=== PATIENT | male | born 1960 | race Caucasian/White ===

== ENCOUNTER 2020-05-25 14:07 | Emergency (ER) | payer OTHER, SELFPAY ==
--- NOTE | ~2020-05-25 | CT_ITS ---
EXAMINATION: CT abdomen pelvis w con EXAM DATE: 05/25/2020 15:53 INDICATION: Left upper quadrant pain. TECHNIQUE: Spiral CT of the abdomen and pelvis was performed following intravenous injection of 100 m L Omnipaque 350. Axial, coronal and sagittal images were reviewed. The dose-length product (DLP) fo r this examination was 836.58 mGy-cm. The exposure was tailored according to patient size (auto mA e xposure control), and iterative reconstruction (ASIR) was used as additional dose reduction technique . There is no prior study for comparison. FINDINGS: There is hepatic steatosis without suspicious focal lesion identified. Spleen, adrenal glan ds, pancreas are unremarkable. The gallbladder is distended but otherwise unremarkable. There is no biliary duct dilation. Portal and splenic veins are patent. Kidneys enhance symmetrically. There is no hydronephrosis. The prostate is unremarkable. The bladder is unremarkable. There is no retr operitoneal or pelvic lymphadenopathy. There is mild scattered arteriosclerotic disease. Small bila teral inguinal fat-containing hernias. Small umbilical fat-containing hernia. Small supraumbilical fa t-containing hernia. There are no findings to suggest appendicitis. The stomach and small bowel are unremarkable. There is expected amount of colonic stool. No free intraperitoneal gas. The heart is normal in size. T here are no pericardial or pleural effusions. Mild basilar emphysema. No consolidation. There are n o osteoblastic or osteolytic lesions identified. IMPRESSION: 1. No acute intra-abdominal findings. 2. Hepatic steatosis. 3. Small fat-containing hernias. Reviewed, dictated and finalized at location B. [facility]
[2020-05-25 14:25] VITALS: BP 212/105; PULSE 95; RESP 17; TEMP 36.6; O2SAT 98
[2020-05-25] MEDS: MORPHINE SULFATE (*CRX) 4 MG/ML INJ IV PUSH (15:01)
[2020-05-25] MEDS: Please add drug allergy info to patient profile. 1 EACH XX (15:01)
[2020-05-25 15:13] LABS: Basophils Absolute Auto 0.1 K/mm3 (0.0-0.1); Basophils Percent Auto 0.7 % (0.2-1.2); Eosinophils Absolute Auto 0.6 K/mm3 (0-0.3); Hematocrit 46.9 % (42.0-52.0); Hemoglobin 15.9 g/dL (14.0-18.0); Immature Granulocyte Absolute 0.07 K/mm3 (0.00-0.031); Immature Granulocyte Percent A 0.5 % (0-0.5); Lymphocytes Absolute Auto 2.05 K/mm3 (0.9-3.2); Lymphocytes Percent Auto 14.3 % (18.3-44.2); Mean Corpuscular HGB Conc 33.9 g/dl (32-36); Mean Corpuscular Hemoglobin 33.1 pg (26-34); Mean Corpuscular Volume 97.7 fl (80-100); Mean Platelet Volume 10.4 fl (7.4-10.4); Monocytes Absolute Auto 0.9 K/mm3 (0.1-0.6); Monocytes Percent Auto 6.3 % (2.6-8.5); Neutrophils Absolute Auto 10.7 K/mm3 (1.3-6.7); Neutrophils Percent Auto 74.2 % (45.5-73.1); Platelet Count Result 306 k/mm3 (150-375); Red Cell Distribution Width 12.8 % (11.5-14.5); White Blood Count 14.4 K/mm3 (4.5-10.0)
[2020-05-25 15:17] LABS: Add Urine Microscopic? YES; Appearance Urine Clear (Clear); Bilirubin Urine Negative (Negative); Blood Urine Negative (Negative); Color Urine Yellow (Yellow); Glucose Urine UA Negative (Negative); Ketones Urine Negative (Negative); Leukocyte Esterase Ur Negative LEU/UL (Negative); Mucus Urine Rare /lpf; Nitrate Urine Negative (Negative); Protein Urine 2+ mg/dL (Negative); RBC Urine 0-2 /hpf (0-2); Specific Grav Ur 1.023 (1.001-1.035); Squamous Epithelial Cell Urine Rare /hpf (Few); Urobilinogen Urine Negative mg/dL (<2.0); WBC Urine 0-3 /hpf
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
[2020-05-25 15:23] LABS: Alanine Aminotransferase 63 U/L (4-50); Albumin Level 4.8 g/dL (3.5-5.1); Alkaline Phosphatase 85 U/L (38-126); Anion Gap 11 mmol/L (8-16); Aspartate Amino Transferase 48 U/L (17-59); Bilirubin,Total 0.5 mg/dL (0.2-1.3); Blood Urea Nitrogen 37 mg/dL (9-20); Calcium 9.6 mg/dL (8.4-10.2); Carbon Dioxide 27 mmol/L (22-30); Chloride 100 mmol/L (98-107); Estimated CRCL calculation 45 ml/min; Estimated Glomerular Filt Rate 39; Glucose 119 mg/dL (75-110); Lipase 355 U/L (23-300); Potassium 4.7 mmol/L (3.4-5.0); Sodium 138 mmol/L (137-145)
[2020-05-25 16:01] VITALS: BP 176/94; PULSE 100; RESP 17; O2SAT 96
== END 2020-05-25 17:12 | disposition home or self-care (01) ==
PROVIDERS: Emergency Provider Emergency Medicine
DX: S39.011A Strain of muscle, fascia and tendon of abdomen, initial encounter (principal); J44.9 Chronic obstructive pulmonary disease, unspecified; F17.200 Nicotine dependence, unspecified, uncomplicated; X50.9XXA Other and unspecified overexertion or strenuous movements or postures, initial encounter; K76.0 Fatty (change of) liver, not elsewhere classified; K40.20 Bilateral inguinal hernia, without obstruction or gangrene, not specified as recurrent; K42.9 Umbilical hernia without obstruction or gangrene
CPT/HCPCS: 36415; 74177; 80053; 81001; 83690; 85025; 96374; 99284; J2270; Q9967

== ENCOUNTER 2020-11-22 09:48 | Observation (INO) | payer OTHER, SELFPAY ==
[2020-11-22] VITALS (15 sets, daily range): BP systolic 152–183; BP diastolic 87–115; PULSE 80–130; RESP 20–42; TEMP 36.7–36.9; O2SAT 92–97; BMI 31.4
--- NOTE | ~2020-11-22 | XR_ITS ---
XR chest 2V DATE: 11/22/2020 10:17 INDICATION: Shortness of breath, wheezing. COPD. TECHNIQUE: PA and lateral views COMPARISON: None FINDINGS: Normal heart size. Azygos lobe, normal variant. Bilateral hyperinflation suggesting COPD. There is a mildly displaced lateral left ninth rib fracture is some callus formation indicating heali ng. There is some infiltrate or atelectasis at the left lung base. The lungs otherwise appear clear. Levoscoliosis and degenerative spurring of the thoracic spine. IMPRESSION: Lateral left ninth subacute rib fracture Mild infiltrate or atelectasis at the left lung base No pneumothorax Reviewed, dictated and finalized at location A.
--- NOTE | ~2020-11-22 | CT_ITS ---
EXAMINATION: CT abdomen pelvis w con DATE: 11/22/2020 12:49 INDICATION: Left groin abscess TECHNIQUE: Computed tomography (CT) of the abdomen and pelvis was performed with 100 cc Omnipaque 350 intravenous contrast. Automated exposure control and iterative reconstruction technique were employe d. Exam dose: 1074.32 mGy-cm total exam DLP. COMPARISON: 05/25/2020 CT abdomen pelvis 11/22/2020 PA and lateral chest FINDINGS: There are are multiple adjacent rounded areas of atelectasis or consolidation in the job setter honing olateral left lower lobe. Continued follow-up is recommended to assure clearing, in order to exclude any pulmonary mass lesion. There is mild dependent atelectasis at the lower lobes. There is a comminuted fracture at the lateral aspect of the left ninth rib. Normal heart size. No pericardial or pleural effusion. Diffuse hepatic steatosis. No hepatic space-occupying mass lesion. The gallbladder is present. Cannot exclude small dependent stones in the gallbladder. Ultrasound would be more reliable for detection o r exclusion of gallstones. No gallbladder wall thickening or pericholecystic fluid or fat stranding. No bile duct dilatation. No pancreatic mass lesion, calcification or ductal dilatation. Normal splenic size. No adrenal mass lesion. 1 cm right renal cyst. There are a couple of approximately 5 mm or smaller left renal probable cysts. No urinary tract calculus or hydroureteronephrosis. No abdominal aortic aneurysm. No intraperitoneal or retroperitoneal or pelvic mass lesion or adenopat hy or ascites. Prostate enlargement and calcification. The urinary bladder is unremarkable. Bilateral fat-containing inguinal hernias. There is increased density and stranding in the subcutaneous adipose tissues around the left spermati c cord and included upper left scrotal area. There are bilateral shotty nonenlarged inguinal lymph nodes, more numerous on the left. There are are likewise shotty nonenlarged iliac chain nodes bilaterally. Normal appendix. No bowel obstruction, bowel wall thickening, pneumatosis or intraperitoneal free air . Umbilical hernia containing one segment of nonobstructed small bowel. Adjacent small supraumbilical f at-containing hernia. Diffuse idiopathic skeletal hyperostosis of the thoracic spine. Multilevel degenerative disc disease of the lumbar spine, particularly at L4-5 and most prominently a t L5-S1. IMPRESSION: Inflammatory stranding in the subcutaneous soft tissues around the left spermatic cord a nd included upper left scrotum. The scrotum is largely excluded from this examination. Likely reactive bilateral inguinal and iliac lymph node prominence Focal areas of rounded atelectasis or consolidation in the posterolateral left lower lobe near a comm inuted fracture of the lateral left ninth rib Hepatic steatosis Small probable renal cysts Prostate enlargement Bilateral fat-containing inguinal hernias Umbilical hernia containing one segment of nonobstructed small bowel; adjacent small supraumbilical f at-containing hernia Reviewed, dictated and finalized at Location [facility]. Reviewed, dictated and finalized at location A. IMPRESSION: Inflammatory stranding in the subcutaneous soft tissues around the left spermatic cord and included upper left scrotum. The scrotum is largely ex cluded from this examination. Likely reactive bilateral inguinal and iliac lymph node prominence Focal areas of rounded atelectasis or consolidation in the posterolateral left lower lobe near a comminuted fracture of the lateral left ninth rib Hepatic steatosis Small probable renal cysts Prostate enlargement Bilateral fat-containing inguinal hernias Umbilical hernia containing one se
--- NOTE | 2020-11-22 09:57 | ECG_ITS ---
Measurements Intervals Anderson Rate: 123 P: 84 IA: 152 QRS: -41 QRSD: 82 T: 65 QT: 288 QTc: 413 Interpretive Statements SINUS TACHYCARDIA LEFT AXIS DEVIATION BORDERLINE R WAVE PROGRESSION, ANTERIOR LEADS BASELINE ARTIFACT- I, II, AVR ABNORMAL ECG Electronically Signed On 11-22-2020 13:24:48 CDT by Hawk Perez D.O.
[2020-11-22 10:25] LABS: Basophils Absolute Auto 0.1 K/mm3 (0.0-0.1); Basophils Percent Auto 0.9 % (0.2-1.2); Eosinophils Absolute Auto 1.4 K/mm3 (0-0.3); Eosinophils Percent Auto 8.9 % (0-4.4); Hematocrit 48.1 % (42.0-52.0); Hemoglobin 16.1 g/dL (14.0-18.0); Immature Granulocyte Absolute 0.07 K/mm3 (0.00-0.031); Immature Granulocyte Percent A 0.5 % (0-0.5); Lymphocytes Absolute Auto 2.52 K/mm3 (0.9-3.2); Lymphocytes Percent Auto 16.2 % (18.3-44.2); Mean Corpuscular HGB Conc 33.5 g/dl (32-36); Mean Corpuscular Hemoglobin 32.3 pg (26-34); Mean Corpuscular Volume 96.4 fl (80-100); Mean Platelet Volume 10.4 fl (7.4-10.4); Monocytes Absolute Auto 0.9 K/mm3 (0.1-0.6); Monocytes Percent Auto 5.7 % (2.6-8.5); Neutrophils Absolute Auto 10.6 K/mm3 (1.3-6.7); Neutrophils Percent Auto 67.8 % (45.5-73.1); Platelet Count Result 302 k/mm3 (150-375); Red Blood Count 4.99 M/mm3 (4.6-6.20); Red Cell Distribution Width 13.2 % (11.5-14.5); White Blood Count 15.6 K/mm3 (4.5-10.0)
[2020-11-22 11:07] LABS: Anion Gap 12 mmol/L (8-16); Blood Urea Nitrogen 22 mg/dL (9-20); Calcium 9.5 mg/dL (8.4-10.2); Carbon Dioxide 24 mmol/L (22-30); Chloride 102 mmol/L (98-107); Estimated CRCL calculation 43 ml/min; Estimated Glomerular Filt Rate 39; Glucose 118 mg/dL (65-110); Potassium 4.2 mmol/L (3.4-5.0); Sodium 138 mmol/L (137-145)
[2020-11-22] MEDS: IPRATROPIUM BR 0.02% INH SOLN 0.5 MG/2.5 ML VIAL INHALATION ×2 (11:48→21:22)
[2020-11-22] MEDS: ALBUTEROL SULFATE NEB 2.5 MG/0.5 ML INH 5 MG INHALATION ×2 (11:48→21:21)
[2020-11-22 12:11] LABS: Alveolar/Arterial O2 Gradient 48.1 mmHg; Base Excess ABG 1.4 mEq/l (+/-2.0); Carboxyhemoglobin 4.3 % THb (0-2.0); Fractional Inspired Oxygen 21 %; Methemoglobin ABG 0.1 %THb (0-1.5); Oxygen Content ABG 19.6 %vol (16.0-22.0); Oxygen Saturation ABG 91.4 % (95.0-100.0); Oxyhemoglobin 87.2 % THb (90.0-100.0); PCO2 ABG 36.6 mmHg (35.0-45.0); PO2 ABG 57.8 mmHg (80.0-100.0); PO2 FiO2 Ratio Arterial Blood 2.75 %; Reduced Hemoglobin 8.4 %THb (0-5.0); pH ABG 7.453 (7.350-7.450)
[2020-11-22 12:12] LABS: Device ROOM AIR; Site Drawn LEFT BRACHIAL
[2020-11-22] MEDS: LACTATED RINGERS 1,000 ML 999 ML IV CONT (12:16)
[2020-11-22] MEDS: SODIUM CHLORIDE 0.9% IV 1,000 ML 999 ML IV CONT (15:13)
--- NOTE | 2020-11-22 15:25 | ED.GENADULT ---
HPI - General Adult General Chief complaint: Shortness of Breath/Dyspnea Stated complaint: abscess in groin Time Seen by Provider: 11/22/20 10:58 Source: patient and RN notes reviewed Mode of arrival: ambulatory Limitations: no limitations History of Present Illness HPI narrative: This is a 60 year old male with history of COPD who presents for evaluation of left groin abscess. Patient states he has history of multiple skin abscess. He notices swelling to his left groin 1 week ago. He states it has been draining for a couple days. He reports it is draining blood and brown discharge. He states it has decreased in size and it is improving. He came to ER because he is also having some wheezing and shortness of breath. He denies fever or chills. Related Data Home Medications Medication Instructions Recorded Confirmed gabapentin 11/22/20 meloxicam 15 mg PO DAILY 11/22/20 11/22/20 Allergies Allergy/AdvReac Type Severity Reaction Status Date / Time NSAIDS (Non-Steroidal Allergy Unknown Verified 11/22/20 18:52 Anti-Inflamma Ptgzsbo-Jef-Sat Reductase Allergy Unknown Verified 11/22/20 18:52 Inhibitor Review of Systems Review of Systems: All systems reviewed & are unremarkable except as noted in HPI and below PMFSH Past Medical History Medical History Chronic back pain COPD (chronic obstructive pulmonary disease) Surgical History Surgical History H/O umbilical hernia repair Family History Family History (Updated 11/22/20 @ 18:38 by Abena England RN) Father No problems noted. Grandparent Diabetes mellitus Mother Lung cancer Social History Social History (Updated 05/25/20 @ 15:21 by Braulio Coburn MD) Smoking packs per day: 1.5 Smoking cigarettes per day: 30.0 Smoking status: Current every day smoker Tobacco type: cigarettes Alcohol intake: current Drinks per week: 3 Substance use: current Substance use type: marijuana Gender identity (if verbalized by the patient): Male Sexual Orientation (if Verbalized by the Patient): Straight or Heterosexual Spiritual care concerns: No Exam Const: General: no acute distress and alert Orientation/consciousness: patient oriented x3 Eyes: EOM: EOMs intact bilaterally Resp: Effort & Inspection: no retractions and tachypneic Auscultation: wheezes scattered wheezes and diminished lung sounds bilateral GI: GI Palp: Yes Soft to palpation, No Tenderness to palpation present (GI) and No Guarding due to palpation present (GI) Auscultation: normal bowel sounds : Penis: Yes normal penis and Yes circumcised Other: posterior to left scrotum there is 4 cm area of tenderness and induration with small opening draining purulent fluid, no necrosis, no erythema, scrotum otherwise normal Neuro: General: patient oriented x3, moves all extremities and CN's II-XI intact bilaterally Course Reevaluation(s) Reevaluation #1: Patient will be admitted for copd exacerbation and left inguinal scrotal abscess. He was found to drop his oxygen saturation to 86% on room air intermittently. His abscess seems to be draining . No significant abscess seen on cT . This does not appear to be susan. Date: 11/22/20 Time: 17:00 Consultations Consultation #1: I discussed case with norberto . I discussed labs and ABG. He will be admitted for COPD exacerbation. She request urology consultation to see patient tomorrow Date: 11/22/20 Time: 15:32 Consultation #2: I spoke with Dr. Pop who agrees to consult on patient to . Date: 11/22/20 Time: 17:00 Vital Signs Vital signs: Vital Signs Temperature 98.4 F 11/22/20 09:49 Pulse Rate 130 H 11/22/20 09:49 Respiratory Rate 20 11/22/20 09:49 Blood Pressure 183/115 H 11/22/20 09:49 Pulse Oximetry 94 11/22/20 09:49 Temperature 98.4 F 11/22/20 09:49
--- NOTE | 2020-11-22 15:52 | PC.NURSE ---
Lidocaine, #11 blade, Iodaform, and laceration tray in room per request of the EDP.
[2020-11-22 16:13] LABS: Lactic Acid Reflex 0.9 mmol/L (0.7-2.1)
[2020-11-22] MEDS: predniSONE 20 MG TABLET 60 MG PO (18:19)
[2020-11-22] MEDS: SODIUM CHLORIDE 0.9% IV 1,000 ML 125 ML IV CONT (18:20)
--- NOTE | 2020-11-22 18:34 | ADMGEN ---
This patient, Endy Rodarte, was admitted to 3 [facility] Surg Room 321-01. Patient/family oriented to hospital policies and general routines including ID bracelet, bed and alarms, visiting hours, pain management, procedures, bathroom and other care routines, personal items, smoking policy, room service/diet, and visiting hours. Information on how to activate the Rapid Response Team has been discussed. Patient/Family are encouraged to report perceived risks to care and to ask questions if they do not understand what they are told or what they should do.
--- NOTE | 2020-11-22 19:49 | PM.IMHP ---
H&P: HPI History of Present Illness Date/Time: 11/22/20 19:49 Chief Complaint: Scrotal abscess Narrative: This is a 60-year-old male with past medical history significant for COPD/emphysema, severe acne. Patient presented to emergency room due to left scrotal mass for the last week or so a has started to drain in the last 2 days bloody discharge which then turned chocolate brown for which he presented to the emergency room also left groin mass. Patient denies any fevers any chills any rigors no nausea no vomiting no abdominal pain no diarrhea no muscle aches. Preliminary workup was significant for CT of abdomen and pelvis inflammatory stranding in the subcutaneous soft tissues around the left spermatic cord and included upper left scrotum and likely reactive bilateral inguinal and iliac lymph node prominence. Review of Systems Review of Systems: Left scrotal abscess with bloody discharge as well as chocolate brown Constitutional: Constitutional: Denies chills, Denies fatigue, Denies fever(s) and Denies malaise Eyes: Eyes: Denies change in vision ENT: Denies dysphagia, Denies nasal congestion, Denies nasal discharge, Denies nasal obstruction and Denies odynophagia Cardiovascular: Cardiovascular: Denies chest pain Respiratory: Respiratory: Denies cough Gastrointestinal: Gastrointestinal: Denies abdominal pain, Denies diarrhea, Denies nausea and Denies vomiting Genitourinary: Comments: Scrotal abscess Musculoskeletal: Musculoskeletal: Reports no additional musculoskeletal complaints Integumentary/Breasts: Skin/Breast: Reports acne Comments: Scrotal abscess Neurologic: Reports system reviewed and no additional complaints, except as documented Psychiatric: Psychiatric: Reports no additional psychiatric complaints Endocrine: Endocrine: Reports no additional endocrine complaints Hematologic/Lymphatic: Hematologic/Lymphatic: Reports no additional hematologic/lymphatic complaints Allergic/Immunologic: Allergic/Immunologic: Reports no additional allergic/immunologic complaints [facility] Past Medical History Medical History (Updated 11/23/20 @ 01:11 by Asmita Mon MD) Chronic back pain COPD (chronic obstructive pulmonary disease) Surgical History Surgical History H/O umbilical hernia repair Family History Family History (Updated 11/22/20 @ 18:38 by Abena England RN) Father No problems noted. Grandparent Diabetes mellitus Mother Lung cancer Social History Social History (Updated 05/25/20 @ 15:21 by Braulio Coburn MD) Smoking packs per day: 1.5 Smoking cigarettes per day: 30.0 Smoking status: Current every day smoker Tobacco type: cigarettes Alcohol intake: current Drinks per week: 3 Substance use: current Substance use type: marijuana Gender identity (if verbalized by the patient): Male Sexual Orientation (if Verbalized by the Patient): Straight or Heterosexual Spiritual care concerns: No Meds Home Medications and Allergies Home Medications Medication Instructions Recorded Confirmed Type gabapentin 11/22/20 History meloxicam 15 mg PO DAILY 11/22/20 11/22/20 History Allergies Allergy/AdvReac Type Severity Reaction Status Date / Time NSAIDS (Non-Steroidal Allergy Unknown Verified 11/22/20 18:52 Anti-Inflamma Jkqvafy-Rjl-Dzl Reductase Allergy Unknown Verified 11/22/20 18:52 Inhibitor Vital Signs Vital Signs - 24 hr 11/22/20 09:49 11/22/20 11:31 11/22/20 11:46 Temperature 98.4 F Pulse Rate 130 H Respiratory Rate 20 Blood Pressure 183/115 H 176/107 H 178/111 H Pulse Oximetry 94 93 92 11/22/20 11:50 11/22/20 12:01 11/22/20 12:05 Temperature Pulse Rate 106 H 105 H 105 H Respiratory Rate 24 H 23 H Blood Pressure 170/107 H 178/103 H Pulse Oximetry 93 94 11/22/20 12:14 11/22/20 12:18 11/22/20 14:02 Temperature Pulse Rate 105 H 108 H 103 H Respir
[2020-11-22] MEDS: MORPHINE SULFATE (*CRX) 4 MG/ML INJ IV PUSH (20:16)
[2020-11-23] VITALS (7 sets, daily range): BP systolic 156–169; BP diastolic 101–105; PULSE 76–102; RESP 20; TEMP 36.7; O2SAT 90–95
[2020-11-23] MEDS: ALBUTEROL SULFATE NEB 2.5 MG/0.5 ML INH 5 MG INHALATION ×2 (02:36→08:44)
[2020-11-23] MEDS: IPRATROPIUM BR 0.02% INH SOLN 0.5 MG/2.5 ML VIAL INHALATION ×2 (02:37→08:44)
[2020-11-23] MEDS: MORPHINE SULFATE (*CRX) 4 MG/ML INJ IV PUSH ×2 (03:30→05:51)
--- NOTE | 2020-11-23 06:58 | WPDURCON ---
Assessment and Plan Assessment and plan (1) Scrotal abscess: Code(s): N49.2 - Inflammatory disorders of scrotum Status: Acute Assessment and Plan: A left scrotal abscess that has spontaneously drained. Currently, there is no indication for intervention (other than antibiotics) from our standpoint. I would recommend a 3 week course of oral quinolone (Cipro or Levaquin ). From our standpoint, this can be managed as an outpatient. Discharge any time with follow-up in 1-2 weeks. Urology Consult Note HPI Date Seen: 11/23/20 Requesting Physician: Louis Oh MD Primary Care Provider: [facility] Consult Narrative Narrative: Endy Rodarte is a 60 year old male previously a known to our practice presents to the ER with in a tender draining abscess around his left hemiscrotum and pulmonary symptoms. He reports 1st noting this tender mass around his left side hemiscrotum approximately 1 week ago. several days ago that spontaneously drained and has since been draining purulence slightly bloody fluid. He denies fevers or chills. He has had no similar such abscesses in the past. CT scan of the abdomen and pelvis shows inflammation around the left spermatic cord in the inguinal canal and into the left hemiscrotum. Review of Systems Cardiovascular: Cardiovascular: Denies chest pain, Denies lightheadedness, Denies palpitations and Denies dyspnea Respiratory: Respiratory: Denies dyspnea Gastrointestinal: Gastrointestinal: Denies diarrhea, Denies nausea and Denies vomiting Genitourinary: Genitourinary: Denies hematuria and Denies dysuria Endocrine: Endocrine: Denies palpitations PMFSH Past Medical History Medical History Chronic back pain COPD (chronic obstructive pulmonary disease) Surgical History Surgical History H/O umbilical hernia repair Family History Family History Father No problems noted. Grandparent Diabetes mellitus Mother Lung cancer Social History Social History Smoking packs per day: 1.5 Smoking cigarettes per day: 30.0 Smoking status: Current every day smoker Tobacco type: cigarettes Alcohol intake: current Drinks per week: 3 Substance use: current Substance use type: marijuana Gender identity (if verbalized by the patient): Male Sexual Orientation (if Verbalized by the Patient): Straight or Heterosexual Spiritual care concerns: No Meds Home Medications and Allergies Home Medications Medication Instructions Recorded Confirmed Type gabapentin 11/22/20 History meloxicam 15 mg PO DAILY 11/22/20 11/22/20 History Allergies Allergy/AdvReac Type Severity Reaction Status Date / Time NSAIDS (Non-Steroidal Allergy Unknown Verified 11/22/20 18:52 Anti-Inflamma Kayzxtq-Mgs-Zxj Reductase Allergy Unknown Verified 11/22/20 18:52 Inhibitor Vital Signs Vital Signs - 24 hr 11/22/20 09:49 11/22/20 11:31 11/22/20 11:46 Temperature 98.4 F Pulse Rate 130 H Respiratory Rate 20 Blood Pressure 183/115 H 176/107 H 178/111 H Pulse Oximetry 94 93 92 11/22/20 11:50 11/22/20 12:01 11/22/20 12:05 Temperature Pulse Rate 106 H 105 H 105 H Respiratory Rate 24 H 23 H Blood Pressure 170/107 H 178/103 H Pulse Oximetry 93 94 11/22/20 12:14 11/22/20 12:18 11/22/20 14:02 Temperature Pulse Rate 105 H 108 H 103 H Respiratory Rate 21 H 42 H 31 H Blood Pressure 169/97 H 155/94 H Pulse Oximetry 97 95 11/22/20 16:01 11/22/20 17:57 11/22/20 20:00 Temperature Pulse Rate 94 97 101 H Respiratory Rate 20 20 Blood Pressure 171/107 H 160/106 H Pulse Oximetry 93 95 92 11/22/20 21:22 11/22/20 21:34 11/22/20 22:00 Temperature 98.1 F Pulse Rate 82 80 101 H Respiratory Rate 20
[2020-11-23 07:03] LABS: Basophils Percent Auto 0.3 % (0.2-1.2); Eosinophils Percent Auto 0.2 % (0-4.4); Hematocrit 44.4 % (42.0-52.0); Hemoglobin 14.8 g/dL (14.0-18.0); Immature Granulocyte Absolute 0.05 K/mm3 (0.00-0.031); Immature Granulocyte Percent A 0.5 % (0-0.5); Lymphocytes Absolute Auto 0.98 K/mm3 (0.9-3.2); Lymphocytes Percent Auto 10.2 % (18.3-44.2); Mean Corpuscular HGB Conc 33.3 g/dl (32-36); Mean Corpuscular Hemoglobin 31.6 pg (26-34); Mean Corpuscular Volume 94.7 fl (80-100); Mean Platelet Volume 10.4 fl (7.4-10.4); Monocytes Absolute Auto 0.2 K/mm3 (0.1-0.6); Monocytes Percent Auto 2.3 % (2.6-8.5); Neutrophils Absolute Auto 8.3 K/mm3 (1.3-6.7); Neutrophils Percent Auto 86.5 % (45.5-73.1); Platelet Count Result 290 k/mm3 (150-375); Red Blood Count 4.69 M/mm3 (4.6-6.20); White Blood Count 9.6 K/mm3 (4.5-10.0)
[2020-11-23 07:14] LABS: Alanine Aminotransferase 50 U/L (4-50); Alkaline Phosphatase 85 U/L (38-126); Anion Gap 7 mmol/L (8-16); Aspartate Amino Transferase 36 U/L (17-59); Bilirubin,Total 0.4 mg/dL (0.2-1.3); Blood Urea Nitrogen 18 mg/dL (9-20); Calcium 8.5 mg/dL (8.4-10.2); Carbon Dioxide 20 mmol/L (22-30); Chloride 108 mmol/L (98-107); Estimated CRCL calculation 48 ml/min; Estimated Glomerular Filt Rate 44; Glucose 138 mg/dL (65-110); Potassium 4.7 mmol/L (3.4-5.0); Sodium 135 mmol/L (137-145)
[2020-11-23] MEDS: MELOXICAM 7.5 MG TABLET 15 MG PO (09:00)
[2020-11-23] MEDS: predniSONE 20 MG TABLET 60 MG PO (09:00)
--- NOTE | 2020-11-23 11:45 | PC.NURSE ---
Patient left AMA walking with a cane. RX sent to pharmacy.
--- NOTE | 2020-11-23 13:17 | P.PNCROSS_ITS ---
Event Note Event Note Event Note: Date of service: 11/23/2020 Endy Rodarte is a 60-year-old male with a history of COPD who I saw in follow-up for scrotal abscess. Upon my initial encounter with the patient, he was very irritated. He stated no one was doing anything regarding his scrotal issues and no one would help him. He was upset that he had had nothing to eat besides a dry turkey sandwich. He felt that no one was addressing his pain. He said he was tired of answering the same questions. He had his on the phone and told her to come and pick him up and chose to sign out against medical advice. Scrotal abscess * Seen in consultation by Urology. Was spontaneously draining and no further i ntervention required per Urology recommendations. I did send him with a prescription for Levaquin x3 weeks per Urology recommendations. I also provided a probiotic. I informed him that it is extremely important that he attend his follow-up appointment with Dr. Pop in 1-2 weeks Uncontrolled hypertension * His blood pressure was very elevated in the 150s-160s systolic and in the 100s diastolic. He took himself off his antihypertensives several weeks ago, stating he did not trust his primary care provider who prescribed this to him. I informed him of the risk of uncontrolled hypertension including stroke and encouraged him to stay to monitor his blood pressure and initiate antihypertensives. He did not wish to do this. I advised him to promptly follow-up with his PCP to initiate treatment. I discussed with the patient worrisome signs and symptoms for which to return and informed of need for follow-up with both his PCP and urologist. He left against medical advice on 11/23/2020. He was mentally competent to make this decision.
== END 2020-11-23 09:25 | disposition left against medical advice (07) ==
LOC: ANHED 12:19 → ANH3MEDSUR 17:36
PROVIDERS: Admitting Provider Internal Medicine Critical Care Medicine; Emergency Provider General Practice; Visit Provider Physician Assistant
DX: N49.2 Inflammatory disorders of scrotum (principal); J44.9 Chronic obstructive pulmonary disease, unspecified; F17.210 Nicotine dependence, cigarettes, uncomplicated
CPT/HCPCS: 36415; 36600; 55100; 71046; 74177; 80048; 80053; 82375; 82805; 83050; 83605; 85025; 93005; 94640; 96361; 96365; 96367; 96375; 96376; 99285; A9270; G0378; G0379; J0456; J0696; J2270; J2543; J7030; J7120; J7512; Q9967